=== PATIENT | male | born 1940 | race Caucasian/White ===

== ENCOUNTER 2018-11-04 09:49 | Day surgery (SDC) | payer MEDICARE, OTHER ==
[~2018-11-04] VITALS: Ht 182.9 cm; Wt 87.7 kg
[~2018-11-04 09:49] MED LIST: CARI350 PO; DUTA.5 PO; OXYACE5T PO; ROSU5 PO; TAMS.4ER PO
[2018-11-04] MEDS ORDERED: ASPI81CH (11:48)
== END 2018-11-04 13:05 | disposition home or self-care (01) ==
LOC: ORSCSDS 09:49
PROVIDERS: Internal Medicine Gastroenterology
PROC: 0DBK8ZX Excision of Ascending Colon, Via Natural or Artificial Opening Endoscopic, Diagnostic (ICD-10-PCS; principal; 2018-11-04 11:00)
DX: Z12.11 Encounter for screening for malignant neoplasm of colon (principal); D12.2 Benign neoplasm of ascending colon; E78.5 Hyperlipidemia, unspecified; Z79.82 Long term (current) use of aspirin; Z79.899 Other long term (current) drug therapy
CPT/HCPCS: 88305; J2704; J7120

== ENCOUNTER → 2019-04-16 | Outpatient (CLI) | payer MEDICARE, OTHER ==
[~2019-04-16] MED LIST changes: +ASPI81CH
== END | disposition home or self-care (01) ==
LOC: LAB SHORT 14:20 → PLD 14:20
DX: L85.9 Epidermal thickening, unspecified (principal); L57.8 Other skin changes due to chronic exposure to nonionizing radiation; L81.9 Disorder of pigmentation, unspecified; R23.3 Spontaneous ecchymoses; I78.1 Nevus, non-neoplastic
CPT/HCPCS: 88305

== ENCOUNTER → 2020-09-20 | Outpatient (CLI) | payer MEDICARE, OTHER | END | disposition home or self-care (01) | LOC: LAB SHORT 08:38 | DX: D48.5 Neoplasm of uncertain behavior of skin (principal) | CPT/HCPCS: 88305 ==

== ENCOUNTER 2022-09-07 08:48 | Day surgery (SDC) | payer MEDICARE, OTHER ==
[~2022-09-07] VITALS: Ht 182.9 cm; Wt 88.9 kg
[2022-09-07] MEDS ORDERED: ERGO400 (09:24)
[2022-09-07] MEDS ORDERED: ATOR10 (09:24)
[2022-09-07 12:16] VITALS: BP 118/57
== END 2022-09-07 10:47 | disposition home or self-care (01) ==
LOC: ORSCSDS 08:48
PROVIDERS: Internal Medicine Gastroenterology
PROC: 0DBK8ZX Excision of Ascending Colon, Via Natural or Artificial Opening Endoscopic, Diagnostic (ICD-10-PCS; principal; 2022-09-07 10:30)
DX: Z12.11 Encounter for screening for malignant neoplasm of colon (principal); Z86.010 Personal history of colon polyps; D12.2 Benign neoplasm of ascending colon; K57.30 Diverticulosis of large intestine without perforation or abscess without bleeding; K64.8 Other hemorrhoids; E78.5 Hyperlipidemia, unspecified; Z87.891 Personal history of nicotine dependence; Z79.899 Other long term (current) drug therapy
CPT/HCPCS: 88305; J2405; J2704; J7120